=== PATIENT | female | born 1975 | race Caucasian/White ===

== ENCOUNTER 2022-07-05 21:20 | Observation (INO) ==
[2022-07-05 22:06] LABS: Basophils % 0.6 %; Eosinophils # 0.1 K/mcL (0.0-0.6); Hematocrit 39.2 % (35.3-44.9); Hemoglobin 12.8 g/dL (11.5-15.4); Immature Granulocytes % 0.3 % (0-4); Lymphocytes # 2.1 K/mcL (0.6-4.6); Mean Corpuscular HGB Conc 32.7 g/dL (31.6-35.5); Mean Corpuscular Hemoglobin 29.5 pg (28.0-33.3); Mean Corpuscular Volume 90.3 fL (83.0-100.0); Mean Platelet Volume 10.6 fL (9.4-12.4); Monocytes # 0.6 K/mcL (0.0-1.3); Monocytes % 8.9 %; Neutrophils # 4.1 K/mcL (1.6-8.9); Platelet Count 268 K/mcL (140-400); Red Blood Count 4.34 M/mcL (3.82-4.97); Red Cell Distribution Width 12.7 % (11.5-14.5); Segmented Neutrophils % 59.2 %; White Blood Count 6.9 K/mcL (4.3-11.1)
[2022-07-05 22:14] LABS: Prothrombin Time 11.6 Seconds (9.4-12.1)
[2022-07-05 22:17] LABS: Activated Partial Thrombo Time 31.1 Seconds (26.0-36.0)
[2022-07-05 22:30] LABS: BUN/Creatinine Ratio 16 (6-26); Blood Urea Nitrogen 15 mg/dL (6-20); Calcium 9.7 mg/dL (8.6-10.3); Carbon Dioxide 23 mEq/L (23-29); Chloride 105 mEq/L (98-107); Glucose 111 mg/dL (70-105); Osmolality,Calculated 288 (280-300); Potassium 3.5 mEq/L (3.5-5.1); Sodium 138 mEq/L (136-145); Troponin I < 0.03 ng/mL (< 0.04)
[2022-07-06] MEDS ORDERED: 0.9 % Sodium Chloride 1,000 ML IV ONE (01:18)
[2022-07-06] MEDS ORDERED: Nitroglycerin 0.4 MG TAB.SUBL SL PRN (01:19)
[2022-07-06 02:08] LABS: Bacteria,Urine Few per hpf (None-Few); Bilirubin,Urine Negative (Negative); Blood,Urine Negative (Negative); Clarity,Urine Clear (Clear); Color,Urine Colorless (Yellow); Glucose,Urine (UA) Normal (Normal); Ketones,Urine Negative (Negative); Leukocyte Esterase,Urine Moderate (Negative); Mucus,Urine Few per lpf (None-Few); Nitrite,Urine Negative (Negative); Protein,Urine Negative (Neg-Trace); RBC,Urine 0-3 per hpf (0-3); Specific Gravity,Urine 1.007 (1.010-1.025); Squamous Epithelial Cell,Urine Few per hpf (None-Few); Urobilinogen,Urine Normal (Normal)
[2022-07-06 02:14] LABS: Amphetamine Screen,Urine Negative ng/mL (Cutoff=1000); Barbiturate Screen,Urine Negative ng/mL (Cutoff=200); Benzodiazepines Screen,Urine Negative ng/mL (Cutoff=200); Cannabinoid Screen,Urine Negative ng/mL (Cutoff = 50); Cocaine Screen,Urine Negative ng/mL (Cutoff= 300); Opiate Screen,Urine Negative ng/mL (Cutoff=300); Phencyclidine Screen,Urine Negative ng/mL (Cutoff=25)
[2022-07-06] MEDS ORDERED: Ondansetron ODT 4 MG TAB.RAPDIS SL PRN (03:35)
[2022-07-06] MEDS ORDERED: Naloxone 0.4 MG/ML INJ IVP PRN (03:35)
[2022-07-06] MEDS ORDERED: Melatonin 3 MG TABLET PO PRN (03:35)
[2022-07-06 05:24] LABS: Hematocrit 36.1 % (35.3-44.9); Hemoglobin 11.9 g/dL (11.5-15.4); Mean Corpuscular Hemoglobin 30.4 pg (28.0-33.3); Mean Corpuscular Volume 92.3 fL (83.0-100.0); Mean Platelet Volume 10.6 fL (9.4-12.4); Platelet Count 255 K/mcL (140-400); Red Blood Count 3.91 M/mcL (3.82-4.97); Red Cell Distribution Width 12.9 % (11.5-14.5); White Blood Count 5.9 K/mcL (4.3-11.1)
[2022-07-06 05:27] LABS: Estimated Average Glucose 126 mg/dl
[2022-07-06 05:40] LABS: BUN/Creatinine Ratio 19 (6-26); Blood Urea Nitrogen 15 mg/dL (6-20); Calcium 8.5 mg/dL (8.6-10.3); Carbon Dioxide 26 mEq/L (23-29); Chloride 108 mEq/L (98-107); Cholesterol 212 mg/dL (< 200); Glucose 89 mg/dL (70-105); HDL Cholesterol 53 mg/dL (40-59); LDL Cholesterol,Calculated 126 mg/dL (< 100); Magnesium 2.6 mg/dL (1.6-2.6); Osmolality,Calculated 290 (280-300); Phosphorous 3.3 mg/dL (2.7-4.5); Potassium 3.6 mEq/L (3.5-5.1); Sodium 140 mEq/L (136-145); Triglycerides 165 mg/dL (< 150)
[2022-07-06] MEDS ORDERED: Regadenoson 0.4 MG/5 ML SYRINGE IVP ONE (06:07)
[2022-07-06] MEDS ORDERED: Aspirin 81 MG TAB.CHEW PO SCH (09:00)
[2022-07-06 10:16] VITALS: BP 147/74; PULSE 75; TEMP 97.5; O2SAT 100
== END 2022-07-06 13:25 | disposition home or self-care (01) ==
LOC: EMEROOARM 21:20 → 3BNU 21:20 → SUATTDRO 07-06 04:13 → 3BNU 07-06 05:00
PROVIDERS: ADMIT Internal Medicine; ATTEND Nurse Practitioner